=== PATIENT | female | born 1935 | race Caucasian/White ===

== ENCOUNTER → 2018-07-29 | Outpatient (CLI) | payer MEDICARE, MEDICAID ==
[2015-08-25 20:38] VITALS: BP 120/55
[~2018-07-29] MED LIST: ADVAIR DISKUS1 DS1 IH; DILTIAZEM ER240 MG PO; IPRATROPIUM BROM3 M1 IH; OMNICEF 300MG300 MG PO; PREDNISONE10 M1 PO; RT SPIRIVA INH18 MCG IH; SIMVASTATIN10 MG PO; SOTALOL80 MG PO; ST. JOSEPH81 M2 PO; TRIAMCINOLONE0.1% TP; WARFARIN SOD5 MG PO; ZITHROMAX500 M2 PO; ZOLOFT PO
== END ==
LOC: RAD 11:00
DX: R91.1 Solitary pulmonary nodule (principal); J43.9 Emphysema, unspecified; J98.4 Other disorders of lung
CPT/HCPCS: Q9967

== ENCOUNTER 2019-02-25 16:26 | Emergency (ER) | payer MEDICARE, MEDICAID ==
[~2019-02-25] VITALS: Wt 54.5 kg
[2019-02-25] MEDS ORDERED: AMIODARONE200 MG PO (16:54)
[2019-02-25] MEDS ORDERED: ELIQUIS2.5 MG PO (16:54)
[2019-02-25] MEDS ORDERED: SOTALOL HYDROCH80 MG PO (16:55)
[2019-02-25 17:25] LABS: EOS # 0.3 (0.04-0.40); EOS % 3.6 % (1.0-5.0); HEMATOCRIT 47.9 % (37.0-47.0); HEMOGLOBIN 15.6 g/dL (12.5-16.0); LYMPH# 2.4 (1.50-4.00); MEAN CELL VOLUME 93 fl (78-100); MEAN CORPUSCULAR HEMOGLOBIN 30 pg (27-31); MEAN CORPUSCULAR HGB CONC 33 g/dL (33-37); MEAN PLATELET VOLUME 9.2 fl (7.4-10.4); MONO # 0.8 (0.20-0.80); NEU # 4.7 (1.40-6.50); PLATELET COUNT 262 K/mm3 (130-400); RED BLOOD COUNT 5.18 M/mm3 (4.10-5.30); RED CELL DISTRIBUTION WIDTH 15.2 % (11.5-14.5); WHITE BLOOD COUNT 8.3 K/mm3 (4.8-10.8)
[2019-02-25 17:33] LABS: ALBUMIN 3.8 g/dL (3.4-4.8); POTASSIUM 4.1 mmol/L (3.5-5.1)
[2019-02-25 17:34] LABS: CALCIUM 9.3 mg/dL (8.3-10.5)
[2019-02-25 17:38] LABS: TOTAL BILIRUBIN 0.5 mg/dL (0.2-1.2)
[2019-02-25 18:52] VITALS: BP 144/66
== END 2019-02-25 18:55 | disposition home or self-care (01) ==
LOC: ED 16:26
PROVIDERS: Nurse Practitioner Family
DX: I48.91 Unspecified atrial fibrillation (principal); R55 Syncope and collapse; I10 Essential (primary) hypertension; F17.210 Nicotine dependence, cigarettes, uncomplicated; J44.9 Chronic obstructive pulmonary disease, unspecified; Z79.01 Long term (current) use of anticoagulants

== ENCOUNTER 2021-03-17 19:16 | Emergency (ER) | payer MEDICARE, MEDICAID ==
[~2021-03-17 19:16] MED LIST changes: +AMIODARONE200 MG PO; +ELIQUIS2.5 MG PO; +SOTALOL HYDROCH80 MG PO
[2021-03-17 22:37] VITALS: BP 145/59
== END 2021-03-17 22:04 | disposition home or self-care (01) ==
LOC: ED 19:16
DX: S92.352A Displaced fracture of fifth metatarsal bone, left foot, initial encounter for closed fracture (principal); J44.9 Chronic obstructive pulmonary disease, unspecified; I48.20 Chronic atrial fibrillation, unspecified; F17.210 Nicotine dependence, cigarettes, uncomplicated; Z79.01 Long term (current) use of anticoagulants; W19.XXXA Unspecified fall, initial encounter; Y92.090 Kitchen in other non-institutional residence as the place of occurrence of the external cause

== ENCOUNTER → 2021-04-14 | Outpatient (CLI) | payer MEDICARE, MEDICAID | LOC: RAD 09:47 | DX: I48.0 Paroxysmal atrial fibrillation (principal); I50.21 Acute systolic (congestive) heart failure; I35.1 Nonrheumatic aortic (valve) insufficiency ==

== ENCOUNTER 2021-04-24 09:30 | Emergency (ER) | payer MEDICARE, MEDICAID ==
[~2021-04-24] VITALS: Ht 152.4 cm; Wt 49.7 kg
[2021-04-24 10:30] LABS: BASO # 0.04 (0.02-0.10); EOS # 0.21 (0.04-0.40); EOS % 3.9 % (1.0-5.0); HEMATOCRIT 46.4 % (37.0-47.0); HEMOGLOBIN 14.6 g/dL (12.5-16.0); LYMPH# 1.72 (1.50-4.00); MEAN CELL VOLUME 93 fl (78-100); MEAN CORPUSCULAR HEMOGLOBIN 29 pg (27-31); MEAN CORPUSCULAR HGB CONC 32 g/dL (33-37); MEAN PLATELET VOLUME 8.8 fl (7.4-10.4); MONO # 0.59 (0.20-0.80); NEU # 2.78 (1.40-6.50); PLATELET COUNT 209 K/mm3 (130-400); RED CELL DISTRIBUTION WIDTH 13.6 % (11.5-14.5); WHITE BLOOD COUNT 5.4 K/mm3 (4.8-10.8)
[2021-04-24 10:35] LABS: ALBUMIN 3.7 g/dL (3.4-4.8)
[2021-04-24 10:36] LABS: POTASSIUM 4.4 mmol/L (3.5-5.1); SODIUM 134 mmol/L (136-145)
[2021-04-24 10:37] LABS: CALCIUM 9.6 mg/dL (8.3-10.5)
[2021-04-24 10:38] LABS: GLUCOSE 88 mg/dL (65-105); TOTAL PROTEIN 7.2 g/dL (6.2-8.1)
[2021-04-24 10:39] LABS: CARBON DIOXIDE 26 mmol/L (23-31)
[2021-04-24 10:40] LABS: TOTAL BILIRUBIN 0.6 mg/dL (0.2-1.2)
[2021-04-24 10:43] LABS: AST-SGOT 18 U/L (5-34)
[2021-04-24 10:45] LABS: ALT/SGPT 7 U/L (0-55)
[2021-04-24 10:53] LABS: TROPONIN-I < 0.03 ng/mL (<0.030)
[2021-04-24 15:33] VITALS: BP 143/56
== END 2021-04-24 15:34 | disposition home or self-care (01) ==
LOC: ED 09:30
PROVIDERS: Family Medicine
DX: I95.1 Orthostatic hypotension (principal); I48.91 Unspecified atrial fibrillation; J44.9 Chronic obstructive pulmonary disease, unspecified; F17.210 Nicotine dependence, cigarettes, uncomplicated; Z79.01 Long term (current) use of anticoagulants
CPT/HCPCS: J7030

== ENCOUNTER 2021-07-12 10:11 | Emergency (ER) | payer MEDICARE, MEDICAID ==
[~2021-07-12] VITALS: Wt 49.8 kg
[2021-07-12 10:45] LABS: BASO # 0.05 K/mm3 (0.02-0.10); EOS # 0.06 K/mm3 (0.04-0.40); EOS % 0.5 % (1.0-5.0); HEMATOCRIT 46.9 % (37.0-47.0); HEMOGLOBIN 15.1 g/dL (12.5-16.0); LYMPH# 1.76 K/mm3 (1.50-4.00); MEAN CELL VOLUME 91 fl (78-100); MEAN CORPUSCULAR HEMOGLOBIN 29 pg (27-31); MEAN CORPUSCULAR HGB CONC 32 g/dL (33-37); MONO # 1.23 K/mm3 (0.20-0.80); NEU # 8.38 K/mm3 (1.40-6.50); PLATELET COUNT 204 K/mm3 (130-400); RED BLOOD COUNT 5.14 M/mm3 (4.10-5.30); RED CELL DISTRIBUTION WIDTH 13.2 % (11.5-14.5); WHITE BLOOD COUNT 11.5 K/mm3 (4.8-10.8)
[2021-07-12 10:46] LABS: ALBUMIN 3.7 g/dL (3.4-4.8)
[2021-07-12 10:47] LABS: POTASSIUM 4.3 mmol/L (3.5-5.1); SODIUM 137 mmol/L (136-145)
[2021-07-12 10:48] LABS: CALCIUM 9.3 mg/dL (8.3-10.5)
[2021-07-12 10:49] LABS: GLUCOSE 94 mg/dL (65-105); TOTAL PROTEIN 7.3 g/dL (6.2-8.1)
[2021-07-12 10:50] LABS: CARBON DIOXIDE 25 mmol/L (23-31)
[2021-07-12 10:51] LABS: TOTAL BILIRUBIN 1.1 mg/dL (0.2-1.2)
[2021-07-12 10:54] LABS: AST-SGOT 14 U/L (5-34)
[2021-07-12 10:56] LABS: ALT/SGPT 6 U/L (0-55)
[2021-07-12 11:09] LABS: TROPONIN-I < 0.03 ng/mL (<0.030)
[2021-07-12 14:54] VITALS: BP 106/63
== END 2021-07-12 14:52 | disposition home or self-care (01) ==
LOC: ED 10:11
PROVIDERS: Nurse Practitioner
DX: I48.20 Chronic atrial fibrillation, unspecified (principal); I95.1 Orthostatic hypotension; J44.9 Chronic obstructive pulmonary disease, unspecified; E78.5 Hyperlipidemia, unspecified; F17.210 Nicotine dependence, cigarettes, uncomplicated; Z79.01 Long term (current) use of anticoagulants
CPT/HCPCS: J2405; J7030

== ENCOUNTER 2021-08-14 11:08 | Emergency (ER) | payer MEDICARE, MEDICAID ==
[~2021-08-14] VITALS: Ht 165.1 cm; Wt 47.9 kg
[2021-08-14 13:21] LABS: BASO # 0.05 K/mm3 (0.02-0.10); EOS # 0.14 K/mm3 (0.04-0.40); HEMATOCRIT 45.1 % (37.0-47.0); HEMOGLOBIN 14.1 g/dL (12.5-16.0); MEAN CELL VOLUME 92 fl (78-100); MEAN CORPUSCULAR HEMOGLOBIN 29 pg (27-31); MEAN CORPUSCULAR HGB CONC 31 g/dL (33-37); MEAN PLATELET VOLUME 8.6 fl (7.4-10.4); NEU # 4.57 K/mm3 (1.40-6.50); PLATELET COUNT 285 K/mm3 (130-400); RED BLOOD COUNT 4.92 M/mm3 (4.10-5.30); RED CELL DISTRIBUTION WIDTH 13.9 % (11.5-14.5); WHITE BLOOD COUNT 7.2 K/mm3 (4.8-10.8)
[2021-08-14 13:33] LABS: ALBUMIN 3.6 g/dL (3.4-4.8); POTASSIUM 4.9 mmol/L (3.5-5.1); SODIUM 136 mmol/L (136-145)
[2021-08-14 13:34] LABS: CALCIUM 9.5 mg/dL (8.3-10.5)
[2021-08-14 13:35] LABS: GLUCOSE 81 mg/dL (65-105); TOTAL PROTEIN 7.7 g/dL (6.2-8.1)
[2021-08-14 13:36] LABS: CARBON DIOXIDE 27 mmol/L (23-31)
[2021-08-14 13:37] LABS: TOTAL BILIRUBIN 0.5 mg/dL (0.2-1.2)
[2021-08-14 13:41] LABS: AST-SGOT 15 U/L (5-34)
[2021-08-14 13:44] LABS: ALT/SGPT < 6 U/L (0-55)
[2021-08-14 13:54] LABS: TROPONIN-I < 0.030 ng/mL (<0.030)
[2021-08-14 14:16] LABS: URINE APPEARANCE CLEAR; URINE COLOR YELLOW
[2021-08-14 14:17] LABS: URINE BILIRUBIN NEGATIVE (NEGATIVE); URINE BLOOD TRACE (NEGATIVE); URINE GLUCOSE NEGATIVE (NEGATIVE); URINE KETONE NEGATIVE (NEGATIVE); URINE LEUKOCYTE ESTERASE 1+ (NEGATIVE); URINE NITRATE NEGATIVE (NEGATIVE); URINE PROTEIN(semi-quant) NEGATIVE (NEGATIVE); URINE UROBILINOGEN NORMAL (NORMAL)
[2021-08-14 14:18] LABS: URINE MUCUS PRESENT (NOT PRESENT)
[2021-08-14 14:46] VITALS: BP 137/65
== END 2021-08-14 14:52 | disposition home or self-care (01) ==
LOC: ED 11:08
PROVIDERS: Nurse Practitioner Family
DX: E86.0 Dehydration (principal); R53.81 Other malaise; I48.91 Unspecified atrial fibrillation; J44.9 Chronic obstructive pulmonary disease, unspecified; Z79.01 Long term (current) use of anticoagulants
CPT/HCPCS: J7040

== ENCOUNTER 2021-08-28 10:23 | Emergency (ER) | payer MEDICARE, MEDICAID ==
[~2021-08-28] VITALS: Ht 165.1 cm; Wt 48.3 kg
[2021-08-28 10:55] LABS: BASO # 0.02 K/mm3 (0.02-0.10); EOS # 0.03 K/mm3 (0.04-0.40); EOS % 0.5 % (1.0-5.0); HEMATOCRIT 45.6 % (37.0-47.0); HEMOGLOBIN 14.3 g/dL (12.5-16.0); LYMPH# 1.24 K/mm3 (1.50-4.00); MEAN CELL VOLUME 92 fl (78-100); MEAN CORPUSCULAR HEMOGLOBIN 29 pg (27-31); MEAN CORPUSCULAR HGB CONC 31 g/dL (33-37); MEAN PLATELET VOLUME 8.9 fl (7.4-10.4); MONO # 1.08 K/mm3 (0.20-0.80); NEU # 4.27 K/mm3 (1.40-6.50); PLATELET COUNT 241 K/mm3 (130-400); RED BLOOD COUNT 4.95 M/mm3 (4.10-5.30); RED CELL DISTRIBUTION WIDTH 14.3 % (11.5-14.5); WHITE BLOOD COUNT 6.7 K/mm3 (4.8-10.8)
[2021-08-28 11:15] LABS: ALBUMIN 3.6 g/dL (3.4-4.8); POTASSIUM 4.2 mmol/L (3.5-5.1); SODIUM 136 mmol/L (136-145)
[2021-08-28 11:17] LABS: GLUCOSE 84 mg/dL (65-105)
[2021-08-28 11:18] LABS: TOTAL PROTEIN 7.8 g/dL (6.2-8.1)
[2021-08-28 11:19] LABS: CALCIUM 9.1 mg/dL (8.3-10.5); CARBON DIOXIDE 26 mmol/L (23-31); TOTAL BILIRUBIN 0.4 mg/dL (0.2-1.2)
[2021-08-28 11:23] LABS: AST-SGOT 18 U/L (5-34)
[2021-08-28 11:24] LABS: ALT/SGPT 6 U/L (0-55)
[2021-08-28 11:46] LABS: TROPONIN-I < 0.030 ng/mL (<0.030)
[2021-08-28 16:32] LABS: URINE APPEARANCE HAZY; URINE BLOOD 50 ery/uL (NEGATIVE); URINE COLOR YELLOW; URINE GLUCOSE NEGATIVE (NEGATIVE); URINE KETONE 1+ (NEGATIVE); URINE LEUKOCYTE ESTERASE TRACE (NEGATIVE); URINE NITRATE NEGATIVE (NEGATIVE); URINE PROTEIN(semi-quant) TRACE (NEGATIVE); URINE UROBILINOGEN NORMAL (NORMAL)
[2021-08-28 16:33] LABS: URINE MUCUS PRESENT (NOT PRESENT)
[2021-08-28 16:43] LABS: URINE BILIRUBIN NEGATIVE (NEGATIVE)
[2021-08-29] MEDS ORDERED: VIBRAMYCIN HYC100 MG PO (09:11)
[2021-08-29 11:45] VITALS: BP 110/64
== END 2021-08-29 11:45 | disposition home or self-care (01) ==
LOC: ED 10:23
PROVIDERS: Family Medicine
DX: U07.1 COVID-19 (principal); I48.20 Chronic atrial fibrillation, unspecified; I95.1 Orthostatic hypotension; J44.9 Chronic obstructive pulmonary disease, unspecified; Z79.01 Long term (current) use of anticoagulants
CPT/HCPCS: J0696; J1100; J7030; J7050; Q0247

== ENCOUNTER 2022-12-10 16:12 | Emergency (ER) | payer MEDICARE, MEDICAID ==
[~2022-12-10] VITALS: Ht 172.7 cm; Wt 57.8 kg
[~2022-12-10 16:12] MED LIST changes: +VIBRAMYCIN HYC100 MG PO
[2022-12-10 18:14] LABS: BASO # 0.05 K/mm3 (0.02-0.10); EOS % 5.1 % (1.0-5.0); HEMATOCRIT 45.8 % (37.0-47.0); HEMOGLOBIN 14.7 g/dL (12.5-16.0); LYMPH# 3.06 K/mm3 (1.50-4.00); MEAN CELL VOLUME 95 fl (78-100); MEAN CORPUSCULAR HEMOGLOBIN 31 pg (27-31); MEAN CORPUSCULAR HGB CONC 32 g/dL (33-37); MEAN PLATELET VOLUME 10.5 fl (7.4-10.4); MONO # 1.03 K/mm3 (0.20-0.80); NEU # 5.12 K/mm3 (1.40-6.50); PLATELET COUNT 217 K/mm3 (130-400); RED BLOOD COUNT 4.82 M/mm3 (4.10-5.30); RED CELL DISTRIBUTION WIDTH 12.9 % (11.5-14.5); WHITE BLOOD COUNT 9.8 K/mm3 (4.8-10.8)
[2022-12-10 18:20] LABS: CALCIUM 9.4 mg/dL (8.3-10.5)
[2022-12-10 18:22] LABS: TOTAL PROTEIN 7.5 g/dL (6.2-8.1)
[2022-12-10 18:23] LABS: TOTAL BILIRUBIN 0.3 mg/dL (0.2-1.2)
[2022-12-10 18:29] LABS: POTASSIUM 5.2 mmol/L (3.5-5.1)
[2022-12-10 18:30] LABS: URINE APPEARANCE CLEAR; URINE BILIRUBIN NEGATIVE (NEGATIVE); URINE BLOOD NEGATIVE (NEGATIVE); URINE COLOR YELLOW; URINE GLUCOSE NEGATIVE (NEGATIVE); URINE KETONE NEGATIVE (NEGATIVE); URINE LEUKOCYTE ESTERASE TRACE (NEGATIVE); URINE NITRATE NEGATIVE (NEGATIVE); URINE PROTEIN(semi-quant) TRACE (NEGATIVE); URINE UROBILINOGEN NORMAL (NORMAL)
[2022-12-10] MEDS ORDERED: MECLIZINE PO (19:59)
[2022-12-10 20:15] VITALS: BP 140/75
== END 2022-12-10 20:15 | disposition home or self-care (01) ==
LOC: ED 16:12
PROVIDERS: Family Medicine
DX: E86.9 Volume depletion, unspecified (principal); I48.91 Unspecified atrial fibrillation; F17.210 Nicotine dependence, cigarettes, uncomplicated; Z91.040 Latex allergy status; Z28.310 Unvaccinated for COVID-19; Z79.01 Long term (current) use of anticoagulants
CPT/HCPCS: J7030